=== PATIENT | male | born 1955 | race Two or more races ===

== ENCOUNTER 2025-01-06 16:30 | Outpatient (CLI) | payer OTHER | END 2025-01-06 16:34 | disposition home or self-care (01) | LOC: LAB 16:30 | PROVIDERS: ATTEND Urology | DX: R97.20 Elevated prostate specific antigen [PSA] (principal) ==

== ENCOUNTER 2025-01-15 07:06 | Outpatient (CLI) | payer OTHER | END 2025-01-15 07:09 | disposition home or self-care (01) | LOC: SONOGRAMA 07:06 | PROVIDERS: ATTEND Urology | DX: C61 Malignant neoplasm of prostate (principal); N40.1 Benign prostatic hyperplasia with lower urinary tract symptoms; R97.20 Elevated prostate specific antigen [PSA] ==